=== PATIENT | female | born 1990 | race Caucasian/White ===

== ENCOUNTER 2018-09-02 10:42 | Emergency (ER) | payer OTHER ==
--- NOTE | 2018-09-02 11:54 | RAD ---
THREE VIEW RIGHT ANKLE: Indication: Injury with pain. FINDINGS: There are heterotopic densities adjacent the lateral malleolus. Mild soft tissue prominence is seen. Mortise is intact. Small enthesophyte formation is seen at the plantar aspect of the calcaneus. IMPRESSION: Heterotopic densities of the lateral ankle inferior to the fibular tip. Two of these are chronic in a ppearance and the additional crescentic in shape and could relate to a superimposed recent avulsion i njury in the correct clinical context. Correlate clinically and as necessary, imaging follow up may b e obtained. POS: [facility]
== END 2018-09-02 11:51 | disposition home or self-care (01) ==
LOC: SCSER 10:42
DX: S93.401A Sprain of unspecified ligament of right ankle, initial encounter (principal); Z79.899 Other long term (current) drug therapy; X50.1XXA Overexertion from prolonged static or awkward postures, initial encounter